=== PATIENT | male | born 1975 | race Caucasian/White ===

== ENCOUNTER 2020-09-16 07:15 | Outpatient (CLI) | payer OTHER, SELFPAY ==
--- NOTE | 2020-09-16 07:15 | ECG_ITS ---
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 Interpretive Statements NAME OF STUDY: LEXISCAN SESTAMIBI STRESS TEST INDICATION: Chest Pain, PROCEDURE: At the baseline, the EKG revealed normal sinus rhythm with a normal ST-T's. The baseline blood pressure was 156/81 mm Hg with a heart rate of 86 beats/min. Lexiscan was infused over a period of 20 seconds. A total of 0.4 milligrams of Lexiscan was infused. The stress phase was continued for a total of 5 minutes. Heart rate at the end of the stress phase was 105 with a blood pressure 178/83. The EKG at the peak infusion revealed no significant changes. Sestamibi was injected 20 seconds after the Lexiscan infusion. Blood pressure at the end of the recovery phase was 170/90 with a heart rate of 98 per minute. CONCLUSION: 1. No significant EKG changes with the LexiScan infusion 2. No LexiScan induced chest pain or cardiac arrhythmia 3. Normal blood pressure and heart rate response 4. Sestamibi/sestamibi perfusion scan pending; see separate report. Electronically Signed On 09-18-2020 8:52:32 CDT by Lona Haile M.D. [id number]
--- NOTE | 2020-09-16 07:15 | NMCV_ITS ---
NM celia perf SPECT r/s* [id number] Js Graves Age: 45 Gender: M : 1975 Exam Date: 09/16/2020 07:15 Ordering Phys: Jacqueline Cheema NP Technologist: LUCRECIA Patel Exam Location: [facility] Indications: CHEST PAIN STRESS TEST Please see separate stress test report in [facility] for full findings IMAGE PROTOCOL Rest/Stress 1 Radiopharmaceutical Dose (mCi) Administration Site Administered by Rest: Tc-99m 10.8 IV LUCRECIA Srinivasan Sestamibi Stress:Tc-99m 32.8 IV LUCRECIA Patel Sestamitracie Rest: 16-Sep-2020 60 Discovery 630 Stress: 16-Sep-2020 30 Discovery 630 SPECT RESULTS Technical Quality: Excellent Raw Data Analysis: Normal Image Corrections: No attenuation or motion correction applied Summed Stress Score: 0 Summed Rest Score: 0 Summed Difference Score: 0 PERFUSION FINDINGS Small areas of decreased tracer uptake in the apical segment with no significant reversibility. FUNCTIONAL RESULTS (calculated via Gated SPECT) Stress Image LV EF (%): 58 Stress EDV (mL):124 TID: 1.07 Stress ESV (mL):52 FUNCTIONAL FINDINGS: Segmental wall motion analysis revealing no gross wall motion abnormalities IMPRESSIONS 1. Myocardial perfusion imaging revealing small areas of persistent decreases uptake in the apical regions, suggestive of myocardial scarring versus attenuation artifact. 2. Normal LV ejection fraction 58%. 3. LV wall motion analysis revealing no gross wall motion normalities. 4. Mildly dilated LV cavity Low probability for coronary ischemia, based on the above findings Dr Lona Haile MD FACC (Electronically Signed) Final Date: 16 September 2020 19:49 S
[2020-09-16 07:30] VITALS: BMI 36.3
[2020-09-16] MEDS: regadenoson 0.4 Mg/5 ml Syringe IVP (09:00)
[2020-09-16 09:19] VITALS: BP 175/84; PULSE 102
== END 2020-09-16 07:16 | disposition home or self-care (01) ==
LOC: CDL 07:17
PROVIDERS: PCP Nurse Practitioner Family; Visit Provider Nurse Practitioner Family
DX: R07.89 Other chest pain (principal)
CPT/HCPCS: 78452; 93017; A9500; J2785

== ENCOUNTER → 2021-01-01 08:06 | Outpatient (BNVA) | payer OTHER, SELFPAY | PROVIDERS: PCP Nurse Practitioner Family; Referring Provider Nurse Practitioner Family; Visit Provider Internal Medicine | DX: E11.9 Type 2 diabetes mellitus without complications (principal); Z79.4 Long term (current) use of insulin; E66.01 Morbid (severe) obesity due to excess calories; Z68.35 Body mass index [BMI] 35.0-35.9, adult; E78.5 Hyperlipidemia, unspecified; F17.200 Nicotine dependence, unspecified, uncomplicated; I10 Essential (primary) hypertension | CPT/HCPCS: 99205 ==

== ENCOUNTER 2021-01-01 09:18 | Outpatient (CLI) | payer OTHER, SELFPAY ==
[2021-01-01 10:16] LABS: Glucose 148 mg/dL (65-115)
[2021-01-02 09:58] LABS: C-Peptide 4.33 ng/mL (0.80-3.85)
== END 2021-01-01 09:19 | disposition home or self-care (01) ==
LOC: LAB 09:24
PROVIDERS: PCP Nurse Practitioner Family; Visit Provider Internal Medicine
DX: E11.9 Type 2 diabetes mellitus without complications (principal)
CPT/HCPCS: 36415; 82947; 83519; 83525; 84681; 86337

== ENCOUNTER 2021-05-01 14:13 | Inpatient (IN) | payer OTHER, SELFPAY ==
[2021-05-01] VITALS (13 sets, daily range): BP systolic 138–166; BP diastolic 69–105; PULSE 61–101; RESP 16–25; TEMP 36.5–36.8; O2SAT 95–97; BMI 36.6
--- NOTE | 2021-05-01 14:16 | XR_ITS ---
WS: [id number] Portable AP upright chest, 05/01/2021 Clinical Data: chest pain Comparison: None. Findings: No nodules, masses or effusions are seen. The heart is normal. No pneumonia or pneumothorax is seen. The pulmonary vascularity is not increased. The diaphragms are flattened. XR/XR chest 1V portable 17094 Impression: Hyperinflation.
--- NOTE | 2021-05-01 14:16 | ECG_ITS ---
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
--- NOTE | 2021-05-01 14:18 | W.ED.CHESTPA ---
HPI - Chest Pain General: Chief Complaint: Chest Pain Stated Complaint: CHEST PAIN Time Seen by Provider: 05/01/21 14:15 History of Present Illness: HPI narrative: 45-year-old male presents emergency room with episodes of chest pain. He has had several episodes this week that have increased in intensity and duration. The most recent one was the most severe it occurred while he was at rest driving in his car. He went to a local clinic they gave him sublingual nitro and 2 more aspirin he taken 2 aspirin earlier in the day. After he was given the sublingual nitro he had significant relief of pain EMS was called and he was brought into the ER. He had pain radiating into his jaw but not into his arm he has had a little bit of diaphoresis with these episodes this week he does not really need noticed any shortness of breath. Has not previously had an angiogram or stenting done. PT had a normal sestamibi stress test 09/17 MD complaint: chest pain Onset (ago): day(s) Timing of current episode: episodic Onset: during rest Pain location: left chest Pain radiation: jaw/teeth Severity: moderate Quality: tightness and heaviness Relieving factors: nitroglycerin Exacerbating factors: nothing Associated symptoms: Deny abdominal pain, diaphoresis, dyspnea, fever(s), leg edema, nausea, palpitations, sense of impending doom, syncope or vomiting Treatment prior to arrival: aspirin and nitroglycerin Review of Systems Const: Denies: fever(s) or diaphoresis ENMT: Denies: throat pain, ear or mastoid pain, nasal discharge or nasal congestion Card: Denies: palpitations or syncope Resp: Denies: dyspnea GI: Denies: abdominal pain, nausea or vomiting : Denies: flank pain, dysuria, urinary frequency or urinary urgency Skin/Breast: Denies: rash or pruritus PFSH ED PFSH: Medical History Diabetes Dyslipidemia HTN (hypertension) Obesity Surgical History No history of previous surgery Family History Father Diabetes CAD (coronary artery disease) Social History Smoking and tobacco status: current every day smoker cigarettes Packs smoked per day: 1 Alcohol intake: current Physical Exam Const: COMMON NORMALS: no acute distress GENERAL APPEARANCE: cooperative and comfortable ORIENTATION/CONSCIOUSNESS: Yes awake, Yes oriented to person, Yes oriented to place and Yes oriented to time HENMT: COMMON NORMALS: normocephalic, atraumatic, hearing grossly normal bilaterally and external ears normal HEAD & SCALP: normocephalic and atraumatic EXTERNAL EAR: Yes external ears normal Neck/C-Spine: COMMON NORMALS: no JVD Resp: COMMON NORMALS: normal respiratory effort, No retractions, No use of accessory muscles and clear to auscultation bilaterally AUSCULTATION: clear to auscultation bilaterally Cardio: COMMON NORMALS: no JVD, regular rate, regular rhythm and No murmurs present (Cardio) RATE: regular rate RHYTHM: regular rhythm GI: COMMON NORMALS: Soft to palpation and No hepatosplenomegaly present AUSCULTATION: Yes normoactive bowel sounds PALPATION: Yes Soft to palpation, No Tenderness to palpation present (GI), No Guarding due to palpation present (GI) and Yes No hepatosplenomegaly present Extremity: COMMON NORMALS: normal to inspection, capillary refill normal, no clubbing, cyanosis or edema, no calf tenderness and no pedal edema Neuro: SENSORIUM/ORIENTATION: Yes oriented to person, Yes oriented to place and Yes oriented to time Skin: COMMON NORMALS: no rashes or lesions noted GENERAL SKIN EXAM: no rashes or lesions noted Course Vital Signs: Vital signs: Vital Signs Temperature 98.2 F 05/01/21 14:14 Pulse Rate 81 05/01/21 14:14 Respiratory Rate 16 05/01/21 14:14 Blood Pressure 166/101 05/01/21 14:14 Pulse Oximetry 97 05/01/21 14:42 MDM - Chest Pain MDM Narrative: Medical decision making narrative: Patient's chest pain is completely relieved. He has significant cardiac risk factors with smoking obesity hypertension and diabetes. He did have a stress test in August 2020 however he is persisting to have symptoms relieved by nitro. Given his very high risk factor profile the escalating unstable angina this week relieved by nitro I feel it is best he be admitted to the hospital and reevaluated. He is in agreement. Lab Data: Labs: Lab Results 05/01/21 05/01/21 05/01/21 Range/Units 13:30 13:30 13:30 WBC 8.8 (4.0-10.0) 10^3/ uL RBC 5.42 H (4.1-5.3) 10^6/u L Hgb 16.3 (11.7-16.6) g/dL Hct 48.4 (42.0-52.0) % MCV 89.3 (80-94) fL MCH 30.1 (28.0-34.0) pg MCHC 33.7 (30.0-36.0) g/dL RDW 13.9 (12.1-15.1) % Plt Count 217 (130-400) 10^3/c mm MPV 10.4 (7.4-10.4) fL Neut % (Auto) 59.6 % Lymph % (Auto) 26.8 % [place] % (Auto) 9.8 % Eos % (Auto) 2.7 % Baso % (Auto) 0.6 % Neut # (Auto) 5.27 (1.8-7.7) 10^3/u L Lymph # (Auto) 2.4 (0.8-4.8) 10^3/u L [place] # (Auto) 0.9 (0.2-0.9) 10^3/u L Eos # (Auto) 0.2 (0.0-0.8) 10^3/u L Baso # (Auto) 0.1 (0.0-0.1) 10^3/u L Nucleated RBC % (a uto) 0 % Nucleated RBCs # 0.0 /100WBC Sodium 140 (136-145) mmol/L Potassium 4.1 (3.5-5.1) mmol/L Chloride 106 (98-107) mmol/L Carbon Dioxide 21 L (22-29) mmol/L Anion Gap 17.1 (5-19) BUN 17 (6-20) mg/dL Creatinine 0.8 (0.7-1.2) mg/dL GFR Calculation 103.6 (90-130) mL/min Glucose 120 H (65-115) mg/dL Calculated Osmolal ity 293 (285-295) mOsm/k g Calcium 9.5 (8.5-10.5) mg/dL Total Bilirubin 0.4 (0.15-1.2) mg/dL AST 22 (0-40) U/L ALT 32 (0-41) U/L Alkaline Phosphata se 108 (40-130) IU/L Troponin T Baselin e 48 H (0-15) ng/L Total Protein 6.5 L (6.6-8.7) g/dL Albumin 4.4 (3.5-5.2) g/dL Globulin 2.1 (1.3-4.6) g/dL Discharge Plan Discharge Patient Disposition: Admitted As Inpatient Clinical Impression: Unstable angina pectoris, Diabetes, Obesity, Smoker, Benign essential HTN Condition: Stable Coding Level of Care Code ED Deck Mechanic for Rita Fwd Exam Comprehensive
[2021-05-01 14:38] LABS: Basophils # 0.1 10^3/uL (0.0-0.1); Basophils % 0.6 %; Eosinophils # 0.2 10^3/uL (0.0-0.8); Eosinophils % 2.7 %; Hematocrit 48.4 % (42.0-52.0); Hemoglobin 16.3 g/dL (11.7-16.6); Lymphocytes # 2.4 10^3/uL (0.8-4.8); Lymphocytes % 26.8 %; Mean Corpuscular HGB Conc 33.7 g/dL (30.0-36.0); Mean Corpuscular Hemoglobin 30.1 pg (28.0-34.0); Mean Corpuscular Volume 89.3 fL (80-94); Mean Platelet Volume 10.4 fL (7.4-10.4); Monocytes # 0.9 10^3/uL (0.2-0.9); Monocytes % 9.8 %; Neutrophils # 5.27 10^3/uL (1.8-7.7); Neutrophils % 59.6 %; Nucleated Red Blood Cells % 0 %; Platelet Count 217 10^3/cmm (130-400); Red Blood Count 5.42 10^6/uL (4.1-5.3); Red Cell Distribution Width 13.9 % (12.1-15.1); White Blood Count 8.8 10^3/uL (4.0-10.0)
[2021-05-01 14:52] LABS: Alanine Aminotransferase 32 U/L (0-41); Albumin Level 4.4 g/dL (3.5-5.2); Alkaline Phosphatase 108 IU/L (40-130); Anion Gap 17.1 (5-19); Aspartate Amino Transferase 22 U/L (0-40); Blood Urea Nitrogen 17 mg/dL (6-20); Calcium 9.5 mg/dL (8.5-10.5); Carbon Dioxide 21 mmol/L (22-29); Chloride 106 mmol/L (98-107); Globulin 2.1 g/dL (1.3-4.6); Glomerular Filtration Rate 103.6 mL/min (90-130); Glucose 120 mg/dL (65-115); Osmolality Calculated 293 mOsm/kg (285-295); Potassium 4.1 mmol/L (3.5-5.1); Sodium 140 mmol/L (136-145); Total Bilirubin 0.4 mg/dL (0.15-1.2); Total Protein 6.5 g/dL (6.6-8.7)
[2021-05-01 14:54] LABS: Troponin(5th) Baseline 48 ng/L (0-15)
--- NOTE | 2021-05-01 16:16 | ECG_ITS ---
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
--- NOTE | 2021-05-01 17:35 | P.HP_ITS ---
Providers/Chief Complaint Admitting Physician: Meaghan Hilario Primary Care Provider: Jacqueline Cheema NP Chief Complaint: CHEST PAIN History of Present Illness 45 year old with past medical history of tobacco abuse, chronic obstructive lung disease, obstructive sleep apnea, hypertension, hyperlipidemia, insulin- dependent diabetes mellitus who presented to ER with substernal chest pain. Patient noted intermittent chest pain for past two days. Today episode lasted for over 30 mins. Denied any associated dyspnea or diaphoresis. Call EMR during which time he was given SL NGT. Noted improvement in pain afterwards however not completely resolved. Upon arrival to ER EKG did not evidence of acute ischemia. Laboratory workup on arrival showed a WBC of 8.8, hemoglobin of 16.3, hematocrit 48.4 and a platelet count of 217. Sodium 140, potassium 4.1, chloride 106, bicarb 21, BUN 17 and creatinine is 0.8, glucose of 120, AST of 22, ALT of 32, ALP of 108. Troponin-T baseline 48, 61 at 120 min - Delta fo 13. In ER nitro- paste was applied. Also given lovenox 1mg/kg and cardiology consult. He was awake, alert, not in any visible distres. Prior Nuclear stress test in 08/2020 which did not show any evidence of reversible ischemia. Review of Systems General: Reports: 10 or more systems reviewed and unremarkable except in HPI and below Const: Denies: fever(s) or diaphoresis ENMT: Denies: throat pain, ear or mastoid pain, nasal discharge or nasal congestion Card: Denies: palpitations or syncope Resp: Denies: dyspnea GI: Denies: abdominal pain, nausea or vomiting : Denies: flank pain, dysuria, urinary frequency or urinary urgency Skin/Breast: Denies: rash or pruritus Medications/Allergies Home Medications Medication Instructions Recorded Confirmed Last Taken Type insulin lispro 100 unit/mL 5 unit SUBCUT TID #15 ml 01/01/21 05/01/21 05/01/21 09:30 Rx subcutaneous pen 5 units irbesartan 150 mg tablet 150 mg PO BEDTIME 01/01/21 05/01/21 04/30/21 History pen needle, diabetic 31 gauge x #360 ea 01/16/21 05/01/21 Unknown Rx 02/10 Vitamin C 1 tab PO BEDTIME 05/01/21 05/01/21 04/30/21 History aspirin 650 mg PO PRN 05/01/21 05/01/21 05/01/21 09:30 History 650 mg atorvastatin 20 mg PO BEDTIME 05/01/21 05/01/21 04/30/21 History calcium carb-D3-mag ox-zinc ox 1 tab PO BEDTIME 05/01/21 05/01/21 04/30/21 History [Roshan Mag Zinc Plus D3] cholecalciferol (vitamin D3) 25 mcg PO BEDTIME 05/01/21 05/01/21 04/30/21 History [Vitamin D3] insulin glargine [Lantus Solostar 48 unit SUBCUT BEDTIME 05/01/21 05/01/21 04/30/21 History U-100 Insulin] multivit with min-folic acid 1 tab PO BEDTIME 05/01/21 05/01/21 04/30/21 History [Adult Multivitamin Gummies] varenicline [Chantix Continuing 1 mg PO BID 05/01/21 05/01/21 05/01/21 09:30 History Month Box] Allergies Allergy/AdvReac Type Severity Reaction Status Date / Time No Known Allergies Allergy Verified 05/01/21 15:11 PFSH Acute 2 PFSH: Medical History Diabetes Dyslipidemia HTN (hypertension) Obesity Surgical History No history of previous surgery Family History Father Diabetes CAD (coronary artery disease) Social History Smoking and tobacco status: current every day smoker cigarettes Packs smoked per day: 1 Alcohol intake: current Vitals/I&O/Wt Last Vital Signs Temp 98.2 F 05/01/21 14:14 Pulse 62 05/01/21 17:06 Resp 25 H 05/01/21 17:06 BP 138/89 05/01/21 17:06 Pulse Ox 96 05/01/21 17:06 Weight last 48 hrs Weight 122.47 kg Physical Exam Narrative: EXAM NARRATIVE: General : Alert, awake, oriented x 3 HEENT: Grossly unremarkable CVS: Regular rate rythym Chest : CTABL ABD: Soft NTND Ext : no edema Data : 05/01/21 13:30 05/01/21 13:30 A&P Assessment and plan (1) NSTEMI (non-ST elevated myocardial infarction): Status: Acute (2) Benign essential HTN: Status: Acute (3) Diabetes: Status: Acute (4) Obesity: Status: Acute (5) Smoker: Status: Acute Non-STEMI Troponin T delta of 13 Aspirin 325 mg PO daily Lipitor 80 mg PO qhs ( High intensity ) Lovenox 120 mg SQ BID NGT SL PRN for chest pain Start Nitro gtt if persistent pain Cardiac telemetry Cardiology consulted in ER Check Lipid panel/A1c in am NPO at midnight Diabetes Mellitus Start diabetic diet Sliding scale insulin Lantus 50% dose at 20 units Qhs ACHS checks Hypertension Verify home meds Hyperlipidemia Lipid panel in am Statin as noted above Goal LDL < 70 Suspected undiagnosed COPD Hyperinflation noted on Chest x-ray Supplemental o2 as needed Outpatient PFT Albuterol PRN DVT ppx Lovenox Attestations Medical Necessity Statement*: Anticipate > 2 midnight stay in hospital for eval and treatment of NSTEMI Time Spent in Patient Care: Greater than 35 minutes (>than 50% of time spent in counselling and/or direct pt care on unit) . 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
[2021-05-01] MEDS: enoxaparin 120 mg/0.8 mL Syringe SUBCUT (17:37)
--- NOTE | 2021-05-01 17:50 | P.CONIM_ITS ---
Providers/Reason For Consult Consulting Physician/Specialty*: Cardiology Reason for Consult*: Non-ST elevation GA Attending Physician: Meaghan Hilario Primary Care Provider: Jacqueline Cheema NP History of Present Illness History of Present Illness Js Graves is a 45 year old male past medical history significant for hypertension hyperlipidemia insulin-dependent diabetes mellitus tobacco abuse presented with chest pain. Twelve-lead EKG was not significant to show ischemia however he was ruled in for non-ST elevation GA. It is the reason we have been asked to see the patient. According to the patient for the last 2 days he has been experiencing off-and-on chest pain today when it became more consistent and increased in intensity while driving the car he stop by the [facility] from where he was transported to the ER. He appeared to be stable he was given Lovenox and nitroglycerin along with aspirin and statin. Review of Systems Const: Denies: fever(s) or diaphoresis ENMT: Denies: throat pain, ear or mastoid pain, nasal discharge or nasal congestion Card: Denies: palpitations or syncope Resp: Denies: dyspnea GI: Denies: abdominal pain, nausea or vomiting : Denies: flank pain, dysuria, urinary frequency or urinary urgency Skin/Breast: Denies: rash or pruritus Meds/Allergies Home Medications and Allergies Home Medications Medication Instructions Recorded Confirmed Last Taken Type insulin lispro 100 unit/mL 5 unit SUBCUT TID #15 ml 01/01/21 05/01/21 05/01/21 09:30 Rx subcutaneous pen 5 units irbesartan 150 mg tablet 150 mg PO BEDTIME 01/01/21 05/01/21 04/30/21 History pen needle, diabetic 31 gauge x #360 ea 01/16/21 05/01/21 Unknown Rx /16 Vitamin C 1 tab PO BEDTIME 05/01/21 05/01/21 04/30/21 History aspirin 650 mg PO PRN 05/01/21 05/01/21 05/01/21 09:30 History 650 mg atorvastatin 20 mg PO BEDTIME 05/01/21 05/01/21 04/30/21 History calcium carb-D3-mag ox-zinc ox 1 tab PO BEDTIME 05/01/21 05/01/21 04/30/21 History [Roshan Mag Zinc Plus D3] cholecalciferol (vitamin D3) 25 mcg PO BEDTIME 05/01/21 05/01/21 04/30/21 History [Vitamin D3] insulin glargine [Lantus Solostar 48 unit SUBCUT BEDTIME 05/01/21 05/01/21 04/30/21 History U-100 Insulin] multivit with min-folic acid 1 tab PO BEDTIME 05/01/21 05/01/21 04/30/21 History [Adult Multivitamin Gummies] varenicline [Chantix Continuing 1 mg PO BID 05/01/21 05/01/21 05/01/21 09:30 History Month Box] Allergies Allergy/AdvReac Type Severity Reaction Status Date / Time No Known Allergies Allergy Verified 05/01/21 15:11 PFSH Acute PFSH: Medical History Diabetes Dyslipidemia HTN (hypertension) Obesity Surgical History No history of previous surgery Family History Father Diabetes CAD (coronary artery disease) Social History Smoking and tobacco status: current every day smoker cigarettes Packs smoked per day: 1 Alcohol intake: current Dietary Habits: Current diet type/program: diabetic Caffeine: Yes Vitals/I&O/Wt Last Vital Signs Temp 98.2 F 05/01/21 14:14 Pulse 62 05/01/21 17:06 Resp 25 H 05/01/21 17:06 BP 138/89 05/01/21 17:06 Pulse Ox 96 05/01/21 17:06 Weight last 48 hrs Weight 270 lb Physical Exam Narrative: EXAM NARRATIVE: GENERAL: Patient is alert, awake and oriented x3. NECK: No jugular vein distension. HEENT: No cyanosis. No icterus. No pallor. HEART: Regular S1 and S2. No murmur, rub or gallop. LUNGS: Clear to auscultate bilaterally. ABDOMEN: Soft, nontender and nondistended. Positive bowel sounds. No guarding, rebound or tenderness. CENTRAL NERVOUS SYSTEM: Grossly nonfocal. EXTREMITIES: Lower extremities without edema bilaterally. A&P Assessment and plan (1) NSTEMI (non-ST elevated myocardial infarction): Patient is ruled in for non-ST elevation GA. I will add beta-mariaelena and load him with ticagrelor, I will continue aspirin and statin. Planning to proceed with left heart cath and PCI if indicated in the morning. Patient has been explained all risk benefit and alternative for the procedure by myself. He has been explained the risk for urgent emergent bypass major minor bleed requiring transfusion arrhythmia stroke contrast-induced nephropathy . He would like to proceed with it. Status: Acute (2) Benign essential HTN: We will add beta-mariaelena to the regimen. He required will use IV nitroglycerin. Status: Acute (3) Smoker: Advised quitting smoking he is already working on it he is on Chantix Status: Acute (4) Diabetes: Insulin as per medicine Status: Acute Qualifiers: Diabetes mellitus type: type 1 Diabetes mellitus complication status: with other specified complication Qualified Code(s): E10.69 - Type 1 diabetes mellitus with other specified complication Consult Attestations Medical Necessity Statement: Patient require continuation hospitalization. I am expecting his stay to cross more than 2 midnights with Coding Level of Care Code New Pt Acute Career Law Clerk for [facility] Fwd Patient Type New History Detailed Exam Detailed Medical Decision Making Moderate Complexity Diagnoses NSTEMI (non-ST elevated myocardial infarction) I21.4 Benign essential HTN I10 Smoker F17.200 Diabetes E10.69 Diabetes mellitus type: type 1 Diabetes mellitus complication status: with other specified complication
[2021-05-01] MEDS: morphine 4 mg/mL SDV 1 mL 2 MG IVP (19:42)
[2021-05-01 19:57] LABS: Glucose Point of Care 90 mg/dL (70-110)
[2021-05-01 20:36] LABS: Troponin 5 6HR 246.5 ng/L (0-15); Troponin 5 6HR Delta 198.5 ng/L (0-12)
[2021-05-01] MEDS: famotidine 20 mg Tablet PO (21:36)
[2021-05-01] MEDS: atorvastatin 40 mg Tablet 80 MG PO (21:37)
[2021-05-01] MEDS: insulin glargine 100 units/1 mL 20 UNIT SUBCUT (21:44)
[2021-05-01] MEDS: ticagrelor 90 mg Tablet 180 MG PO (21:46)
[2021-05-01] MEDS: nicotine 14 mg Patch 1 PATCH TRANSDERMA (22:24)
[2021-05-01] MEDS: nitroglycerin drip 50 MG/250 ML PREMIX IV (22:31)
[2021-05-01 22:51] LABS: Glucose Point of Care 214 mg/dL (70-110)
--- NOTE | 2021-05-01 23:10 | PC.NURSE ---
Around 0: Patient scheduled to have angiogram in morning. Received orders from Dr. Moreno, see JAN. Around 2300: Patient requesting nicotine patch and CPAP at night. Notifed Dr. Hilario. Orders received see JAN.
[2021-05-01] MEDS: HYDROcodone-acetaminophen 5-325 mg Tablet 1 TAB PO (23:48)
[2021-05-02] VITALS (57 sets, daily range): BP systolic 117–178; BP diastolic 64–125; PULSE 62–99; RESP 16; O2SAT 92–99
[2021-05-02] MEDS: diphenhydrAMINE 50 mg Capsule PO (05:54)
[2021-05-02] MEDS: sodium chloride 0.9% 1,000 ML 50 ML IV (05:54)
--- NOTE | 2021-05-02 06:07 | XACV_ITS ---
Exam Room: [facility] Ht: 183 cm Wt: 123 kg BSA: 2.54 m2 Gender: Male : 1975 Exam Priority: Routine Procedure(s): Procedure Description: Diagnostic procedure Procedure Description: Left Heart Catheterization Diagnostic Cath Status: Elective Diagnostic Findings * Left Main has no disease. * Left Anterior Descending has no disease. * Circumflex has no disease. * Mid Right Coronary Artery: moderate 50% stenosis, AJAY: 3 flow. * First Obtuse Marginal Branch Segment: total occlusion, AJAY: 0 flow. * First Obtuse Marginal Branch Segment: obstructive 70% stenosis, AJAY: 0 flow. * Coronary angiography shows right dominance. Interventional Findings * First Obtuse Marginal Branch Segment: 100% stenosis treated with a AB MINI TREK 2.00X12 RX BALLOON, and MDT R DEAN 2.75X15 AALIYAH. 0% residual stenosis, AJAY: 3 flow. * First Obtuse Marginal Branch Segment: 70% stenosis treated with a Drug Eluting Stent. 0% residual stenosis, AJAY: 3 flow. Conclusions 1. There is moderate coronary artery disease with one vessel disease. 2. First Obtuse Marginal Branch Segment was treated with a Balloon, and Drug Eluting Stent. 3. First Obtuse Marginal Branch Segment was treated with a Drug Eluting Stent. Recommendations * Continue current medical management and risk factor modification. Clinical Evaluation EBL: 5mL-10mL Procedural Details Procedure Consent Obtained. Admit Source: In Patient. Pre-Procedure Time Out. Identified patient by full name and date of as verbalized by the patient/guarantor. Does the consent match the physician's order: Yes. Accurate & Complete Informed Consent: Yes. Inpatient/Outpatient History & Physical on Chart: Yes. If H&P is completed, is and addenduem needed: Yes; If yes, is the addendum complete: N/A. Visualize and Verify Site with Patient/Guarantor: N/A. Relevant Radiology Images available: N/A. Pre-op teaching completed and patient verbalized understanding. The risks, benefits, and alternatives of sedation and/or procedure were discussed by physician. The patient agrees to continue. Procedure started. Correct patient, site and procedure confirmed by cath team. PERRLA. Strong, equal hand shop fitter bilaterally. Lungs clear x 5 lobes. IV Site on Arrival: 18 gauge in the left hand. Oxygen started at 2liters/min via nasal canula. bilateral groins was prepped with chloroprep then draped in the usual sterile fashion. right radial was prepped with chloroprep then draped in the usual sterile fashion. Physician notified. Baseline sample Acquired. HR: 82 BPM. Physician arrived. Physician scrubbed in. Immediate Pre-Procedure Time Out. Correct Patient: Yes; Correct Procedure: Yes; Correct Site: Yes; Correct Patient Position: Yes; Correct Supplies: Yes; Dried Flammable Prep: Yes; Blood Products Available: N/A;. Lidocaine 1% infiltrated to the right radial. Arterial access obtained. A 5 amharic TIG catheter in over wire. Multiple views taken of left coronary artery. Catheter redirected to the RCA. long glidewire inserted to take out 5F TIG. Multiple views taken of right coronary artery. Catheter out. 6 amharic XB 3.5 guide catheter was inserted over the wire. Runthrough guidewire was advanced through the guide catheter to lesion in the OM. Inflation number : 1 A AB MINI TREK 2.00X12 RX BALLOON was prepped and advanced across the 1st Ob Maddison , then inflated to 12 SASHA for 0:13 seconds. Inflation number: 2 The AB MINI TREK 2.00X12 RX BALLOON was reinflated across the 1st Ob Maddison, to 14 SASHA for 0:10 seconds. Inflation number: 3 The AB MINI TREK 2.00X12 RX BALLOON was reinflated across the Ob Maddison, to 14 SASHA for 0:12 seconds. Inflation number: 4 The AB MINI TREK 2.00X12 RX BALLOON was reinflated across the Ob Amddison, to 14 SASHA for 0:11 seconds. Balloon out. Inflation Number : 1 A KERRI De Jesus DEAN 2.75X12 AALIYAH -Lot Number# [id number] exp date: 11-18-2022 was prepped and advanced across the Ost1st Ob Marg1. The stent was deployed at 16 SASHA for 0:30 seconds. Stent balloon out over wire. ACT drawn. Results 240 seconds. Therapeutic limits - pre-heparin administration 90-150 seconds and monitoring heparin during a vascular procedure >250 seconds. Results checked. Inflation Number : 5 Chilo De Jesus DEAN 2.75X15 AALIYAH -Lot Number# [id number] exp date: 12-10-2022 was prepped and advanced across the MID Ob Maddison. The stent was deployed at 18 SASHA for 0:19 seconds. Inflation number: 6 The stent balloon was then re-inflated across the MID Ob Maddison to 18 SASHA for 0:08 seconds. stopped Nitro running at 25mcg. Stent balloon out over wire. wire pulled back into guide to check results. Results checked. Wire out. Guide catheter out. TR band placed. Hemostasis obtained. Post Procedure: Pulses reassessed and unchanged. PERRLA. Strong, equal hand shop fitter bilaterally. No VTE prophylaxis required. Medication's Wasted: Lidocaine 1% = 18 mL. Medication's Wasted: Other = versed 1 mg. Total IV fluids: 89.4 mL. Contrast type used: Omnipaque 300 mgI/mL, 500 mL bottle. Contrast Material : Omnipaque 212 ml. A TR Band was successful obtaining hemostatsis at the Right Radial artery insertion site. [facility] Clinical Fraility Score: 3: Managing Well. Nuclear Chemistry Technician Indications: ACS <= 24 hours. Chest Pain Symptom Assessment: Typical Angina Symptoms. Cardiovascular Instability: No. PCI Indication: occluded OM1 prox and Mid. Post-op diagnosis: 2 drug illuting stents prox and mid OM. Complications: none. Estimated blood loss: 5mL-10mL. Procedure completed. Patient transferred by wheelchair to 1st floor. Vital chart was stopped. Access Site Site: Right Radial artery Sheath Size: 6 Fr Hemostasis Method: TR Band Hemostasis Success: Successful Procedure Medications Start: 7:26 AM Stop: 7:26 AM Medication: Versed Amount: 1 mg Route: I.V. Start: 7:26 AM Stop: 7:26 AM Medication: Fentanyl Amount: 50 mcg Route: I.V. Start: 7:33 AM Stop: 7:33 AM Medication: Versed Amount: 1 mg Route: I.V. Start: 7:38 AM Stop: 7:38 AM Medication: Heparin Amount: 5000 units Route: I.V. Start: 7:42 AM Stop: 7:42 AM Medication: Fentanyl Amount: 50 mcg Route: I.V. Start: 7:49 AM Stop: 7:49 AM Medication: Heparin Amount: 5000 units Route: I.V. Start: 8:09 AM Stop: 8:09 AM Medication: Nitrogylcerin Amount: 200 mcg Route: I.C. Start: 8:11 AM Stop: 8:11 AM Medication: Versed Amount: 1 mg Route: I.V. Start: 8:13 AM Stop: 8:13 AM Medication: Heparin Amount: 1000 units Route: I.V. I, the attending physician, have reviewed and verified all procedure medications. Yes, all medications given per verbal order History/Risk Factors Hypertension: Yes Dyslipidemia: Yes Tobacco Use: Current/Recent(w/in 1 year) Report Signatures Finalized by Jerson Moreno MD on 05/02/2021 02:36 PM
[2021-05-02 06:49] LABS: Basophils # 0.1 10^3/uL (0.0-0.1); Basophils % 0.4 %; Eosinophils # 0.2 10^3/uL (0.0-0.8); Eosinophils % 1.9 %; Hematocrit 48.9 % (42.0-52.0); Hemoglobin 15.8 g/dL (11.7-16.6); Lymphocytes # 2.4 10^3/uL (0.8-4.8); Lymphocytes % 21.4 %; Mean Corpuscular HGB Conc 32.3 g/dL (30.0-36.0); Mean Corpuscular Volume 89.7 fL (80-94); Mean Platelet Volume 9.6 fL (7.4-10.4); Monocytes # 1.1 10^3/uL (0.2-0.9); Monocytes % 9.3 %; Neutrophils # 7.48 10^3/uL (1.8-7.7); Neutrophils % 66.4 %; Nucleated Red Blood Cells % 0 %; Platelet Count 198 10^3/cmm (130-400); Red Blood Count 5.45 10^6/uL (4.1-5.3); Red Cell Distribution Width 13.7 % (12.1-15.1); White Blood Count 11.3 10^3/uL (4.0-10.0)
[2021-05-02 07:10] LABS: Alanine Aminotransferase 37 U/L (0-41); Albumin Level 3.9 g/dL (3.5-5.2); Alkaline Phosphatase 97 IU/L (40-130); Anion Gap 15.1 (5-19); Aspartate Amino Transferase 102 U/L (0-40); Blood Urea Nitrogen 16 mg/dL (6-20); Calcium 9.3 mg/dL (8.5-10.5); Carbon Dioxide 22 mmol/L (22-29); Chloride 100 mmol/L (98-107); Cholesterol 124 mg/dL (0-200); Globulin 3.1 g/dL (1.3-4.6); Glomerular Filtration Rate 103.6 mL/min (90-130); Glucose 140 mg/dL (65-115); HDL Cholesterol 31 mg/dL (60-100); LDL Cholesterol Calculated 61 mg/dL (50-129); LDL HDL Ratio 1.97 RATIO (0.00-3.22); Osmolality Calculated 279 mOsm/kg (285-295); Potassium 4.1 mmol/L (3.5-5.1); Sodium 133 mmol/L (136-145); Total Bilirubin 0.5 mg/dL (0.15-1.2); Triglycerides 159 mg/dL (0-150)
--- NOTE | 2021-05-02 07:16 | P.PN_ITS ---
Subjective Subjective: Interval history: Patient is doing well this morning. No shortness of breath. No fevers or chills. He is awaiting angiogram this morning. Blood sugars have been staying well controlled. Vitals/I&O/Wt Last Vital Signs Temp 97.7 F 05/01/21 20:00 Pulse 71 05/02/21 06:30 Resp 18 05/01/21 20:00 BP 127/82 05/02/21 06:30 Pulse Ox 96 05/02/21 06:30 05/01/21 05/02/21 05/02/21 22:59 06:59 14:59 Intake Total 400 / 423.225 23.225 / 423.225 Output Total 375 / 875 500 / 875 Balance 25 / -451.775 -476.775 / -451.775 Weight last 48 hrs Weight 270 lb Physical Exam Narrative: EXAM NARRATIVE: General: No acute distress, Alert. Well nourished. Heart: Regular rate and rhythm. No murmurs, rubs or gallops. Normal capillary refill. Lungs: Clear to auscultation. No wheezes, rhonchi or rales. Abdomen: Positive bowel sounds. Non-tender, non-distended. No hepatosplenomegaly. No gaurding. Extremities: No clubbing, cyanosis, or edema. Negative Zoey's Data : 05/02/21 05:30 05/02/21 05:30 A&P Assessment and plan (1) NSTEMI (non-ST elevated myocardial infarction): Appreciate cardiology's consult Proceed with angiogram today. Further cardiac management dependent on results of this test. Status: Acute (2) Benign essential HTN: Stable Status: Acute (3) Smoker: Encouraged to quit smoking Status: Acute (4) Diabetes: .Blood sugars are stable at this time. We will continue to monitor. Status: Acute Qualifiers: Diabetes mellitus type: type 1 Diabetes mellitus complication status: with other specified complication Qualified Code(s): E10.69 - Type 1 diabetes mellitus with other specified complication Attestations Medical Necessity Statement*: 45-year-old gentleman with acute requiring further inpatient testing and monitoring. 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
--- NOTE | 2021-05-02 07:28 | W.PM.OPSUD ---
Surgery/Procedure H&P Update DATE OF PROCEDURE: May 02, 2021 DATE H&P PERFORMED: 05/01/21 H&P UPDATE INFORMATION: I have reviewed H&P completed within last 30 days, I have examined patient prior to procedure and No changes to prior documentation PREOP DIAGNOSIS: Non-ST elevation TN PLANNED PROCEDURE: Operation Date: 05/02/21 07:00 Proposed Procedures p Cardiac Catheterization(Left) - Jerson Moreno MD PATIENT REASSESSED PRIOR TO SEDATION, WITH NO CHANGE NOTED: Yes PHYSICAL EXAM: alert, oriented x 3, clear to auscultation bilaterally and regular rate & rhythm AIRWAY EVAL/ANESTHESIA PLAN: ASA II, Risks, benefits & alternatives of sedation and/or procedure discussed and Patient agrees to continue as planned
[2021-05-02 07:49] LABS: Estmated Average Glucose 146; Hemoglobin A1C 6.7 % (4.0-6.0)
--- NOTE | 2021-05-02 08:35 | PM.PN ---
Subjective Subjective: Interval history: Status post coronary angiogram noted to have occluded large size and caliber obtuse marginal 1 branch of the circumflex. It was treated with proximal and mid 2 drug-eluting stents. Excellent angiographic result was achieved. Vitals/I&O/Wt Last Vital Signs Temp 97.7 F 05/01/21 20:00 Pulse 71 05/02/21 06:30 Resp 18 05/01/21 20:00 BP 127/82 05/02/21 06:30 Pulse Ox 96 05/02/21 06:30 05/01/21 05/02/21 05/02/21 22:59 06:59 14:59 Intake Total 400 / 400 23.225 / 423.225 Output Total 375 / 375 500 / 875 Balance -476.775 / -451.775 Weight last 48 hrs Weight 270 lb Physical Exam Narrative: EXAM NARRATIVE: GENERAL: Patient is alert, awake and oriented x3. NECK: No jugular vein distension. HEENT: No cyanosis. No icterus. No pallor. HEART: Regular S1 and S2. No murmur, rub or gallop. LUNGS: Clear to auscultate bilaterally. ABDOMEN: Soft, nontender and nondistended. Positive bowel sounds. No guarding, rebound or tenderness. CENTRAL NERVOUS SYSTEM: Grossly nonfocal. EXTREMITIES: Lower extremities without edema bilaterally. Data : 05/02/21 05:30 05/02/21 05:30 A&P Assessment and plan (1) NSTEMI (non-ST elevated myocardial infarction): Status post 2 drug-eluting stent to proximal and mid LAD size and caliber obtuse marginal 1 branch which was 100% occluded, it was culprit. Excellent angiographic result was achieved continue aspirin statin add beta-mariaelena to the regimen. Patient will be on Brilinta 90 mg twice a day for at least 1 year. Status: Acute (2) Benign essential HTN: Titrate medicine. We will add beta-mariaelena which will also lower his blood pressure. Status: Acute (3) Smoker: Advised quitting smoking patient says he is definitely going to do that. Status: Acute Attestations Medical Necessity Statement*: Most likely discharge tomorrow he will be here overnight for post PCI care. Coding Level of Care Code Established Pt Acute Consumer Affairs Director for [facility] Patient Type Established History Detailed Exam Detailed Medical Decision Making Moderate Complexity Diagnoses NSTEMI (non-ST elevated myocardial infarction) I21.4 Benign essential HTN I10 Smoker F17.200
[2021-05-02 09:28] LABS: Glucose Point of Care 264 mg/dL (70-110)
[2021-05-02] MEDS: metoprolol succinate ER (24 HR) 25 mg Tablet 12.5 MG PO (10:18)
[2021-05-02] MEDS: nicotine 14 mg Patch 1 PATCH TRANSDERMA (10:19)
[2021-05-02 11:31] LABS: Glucose Point of Care 195 mg/dL (70-110)
--- NOTE | 2021-05-02 12:16 | USCV_ITS ---
Js Graves Age: 45 Gender: M : 1975 Exam Date: 05/02/2021 09:37 Ordering Phys: Jerson Moreno MD ([email or web address]) Technologist: Cristina Tam Exam Location[place] [facility] [place]ication: NSTEMI BP: 127 / 82 HR: 77 Rhythm: Sinus Technical Quality: Suboptimal MEASUREMENTS (Male / Female) Normal Values 2D ECHO LV Diastolic Diameter PLAX 4.0 cm 4.2 - 5.9 / 3.9 - 5.3 cm LV Systolic Diameter PLAX 3.2 cm LV Chamber Size 3.8 cm IVS Diastolic Thickness 1.3 cm 0.6 - 1.0 / 0.6 - 0.9 cm IVS Systolic Thickness 1.7 cm LVPW Diastolic Thickness 1.5 cm 0.6 - 1.0 / 0.6 - 0.9 cm LVPW Systolic Thickness 1.4 cm RV Chamber Size 2.9 cm LVOT Diameter 2.0 cm LV Ejection Fraction 2D Teich 42.1 % LV Ejection Fraction MOD 2C 49.8 % LV Ejection Fraction 2C AL 51.3 % LA Diameter 3.2 cm LA Width 2.3 cm LA Height 5.4 cm RA Width 2.8 cm RA Height 5.1 cm Aorta at Sinotubular Diameter 3.1 cm M-MODE LV Diastolic Diameter MM 5.0 cm 4.2 - 5.9 / 3.9 - 5.3 cm LV Systolic Diameter MM 3.3 cm LV Ejection Fraction MM Teich 63.2 % IVS Diastolic Thickness MM 1.4 cm 0.6 - 1.0 / 0.6 - 0.9 cm IVS Systolic Thickness MM 2.0 cm LVPW Diastolic Thickness MM 1.6 cm 0.6 - 1.0 / 0.6 - 0.9 cm LVPW Systolic Thickness MM 1.8 cm RV Diastolic Diameter MM 1.2 cm Aortic Annulus Diameter 3.6 cm LA Ao Ratio MM 1.0 MV E Point Septal Separation 0.6 cm DOPPLER AV Peak Velocity 88.0 cm/s LVOT Peak Velocity 47.0 cm/s AV Area Cont Eq vti 2.1 cm squared AV Area Cont Eq pk 1.7 cm squared MV Area PHT 5.1 cm squared Mitral E to A Ratio 1.2 MV E' Velocity 45.5 cm/s Mitral E to MV E' Ratio 7.9 Mitral E to LV E' Lateral Ratio 8.1 Mitral E to LV E' Septal Ratio 7.8 TV Peak E Velocity 60.0 cm/s Right Atrial Pressure 8.0 mmHg PV Peak Velocity 82.0 cm/s RV Acceleration Time 0.1 s RV Ejection Time 0.3 s RV AcT/ET 0.4 FINDINGS Left Ventricle Normal left ventricular cavity size. Normal left ventricular systolic function. No regional wall motion abnormalities. Left ventricular ejection fraction is estimated at 60 %. Grade II/IV diastolic dysfunction, moderately elevated filling pressures. Right Ventricle The right ventricle is normal in size and function. Right Atrium The right atrium is normal in size. Left Atrium The left atrium is normal in size. Mitral Valve Structurally normal mitral valve without significant stenosis or prolapse. There is no mitral regurgitation. Aortic Valve Structurally normal aortic valve without significant sclerosis or stenosis. There is no aortic regurgitation. Tricuspid Valve Structurally normal tricuspid valve without significant stenosis or regurgitation. Pulmonary artery systolic pressure is normal. Pulmonic Valve Structurally normal pulmonic valve without significant stenosis. There is no pulmonic regurgitation. Pericardium Normal pericardium without effusion. Aorta Normal ascending aorta dimension. CONCLUSIONS 1-Normal left ventricular cavity size. Normal left ventricular systolic function. No regional wall motion abnormalities. Left ventricular ejection fraction is estimated at 60 %. Grade II/IV diastolic dysfunction, moderately elevated filling pressures. 2-There is no pericardial effusion. 3-No significant valve abnormalities. 4-Pulmonary artery systolic pressure is within normal limits. 5-Right atrial pressure is around 5 mm of mercury. 6-There are no prior echocardiogram studies to compare. Jerson Moreno MD (Electronically Signed) Final Date: 02 May 2021 14:23 S
[2021-05-02] MEDS: losartan 50 mg Tablet PO ×2 (15:52→20:11)
[2021-05-02 16:45] LABS: Glucose Point of Care 126 mg/dL (70-110)
[2021-05-02] MEDS: famotidine 20 mg Tablet PO (17:18)
--- NOTE | 2021-05-02 17:43 | PC.NURSE ---
Patient received on floor at approx 0900 after coming back from clinical genetics laboratory chief for cardiac angiogram. TR band placed in clinical genetics laboratory chief, palpable pulse distal to band, hand warm to touch, no hematoma present. Patient given instructions on limitations related to affected wrist/hand.
--- NOTE | 2021-05-02 17:46 | PC.NURSE ---
TR band slowly deflated over next few hours following 0900. No hematoma present, no bleeding noted. TR band finally removed at approx 1700, dressing placed over site.
[2021-05-02 19:58] LABS: Glucose Point of Care 125 mg/dL (70-110)
[2021-05-02] MEDS: insulin glargine 100 units/1 mL 20 UNIT SUBCUT (20:10)
[2021-05-02] MEDS: ascorbic acid 500 mg Tablet PO (20:11)
[2021-05-02] MEDS: atorvastatin 40 mg Tablet 80 MG PO (20:11)
[2021-05-03] VITALS: BP 108/69; PULSE 74; RESP 16; TEMP 36.9; O2SAT 94
[2021-05-03 04:16] LABS: Basophils # 0.1 10^3/uL (0.0-0.1); Basophils % 0.6 %; Eosinophils # 0.2 10^3/uL (0.0-0.8); Eosinophils % 2.4 %; Hematocrit 51.3 % (42.0-52.0); Hemoglobin 16.1 g/dL (11.7-16.6); Lymphocytes # 2.7 10^3/uL (0.8-4.8); Lymphocytes % 29.7 %; Mean Corpuscular HGB Conc 31.4 g/dL (30.0-36.0); Mean Corpuscular Hemoglobin 29.7 pg (28.0-34.0); Mean Corpuscular Volume 94.5 fL (80-94); Mean Platelet Volume 9.4 fL (7.4-10.4); Monocytes % 11.3 %; Neutrophils # 5.03 10^3/uL (1.8-7.7); Neutrophils % 55.7 %; Nucleated Red Blood Cells % 0 %; Platelet Count 170 10^3/cmm (130-400); Red Blood Count 5.43 10^6/uL (4.1-5.3)
[2021-05-03 04:36] LABS: Blood Urea Nitrogen 12 mg/dL (6-20); Carbon Dioxide 19 mmol/L (22-29); Chloride 104 mmol/L (98-107); Glomerular Filtration Rate 120.9 mL/min (90-130); Glucose 105 mg/dL (65-115); Osmolality Calculated 282 mOsm/kg (285-295); Sodium 136 mmol/L (136-145)
[2021-05-03 04:44] LABS: Anion Gap 17.2 (5-19); Potassium 4.2 mmol/L (3.5-5.1)
[2021-05-03 06:00] VITALS: PULSE 74
[2021-05-03 06:32] LABS: Glucose Point of Care 109 mg/dL (70-110)
[2021-05-03 07:15] VITALS: BP 131/79; PULSE 97; RESP 18; TEMP 36.7; O2SAT 92
--- NOTE | 2021-05-03 07:39 | P.PN_ITS ---
Subjective Subjective: Interval history: Patient seems to be doing well. He has no chest pain or shortness of breath. No fevers or chills. He tolerated the angiogram well. Medications: Reviewed: Yes Vitals/I&O/Wt Last Vital Signs Temp 98.0 F 05/03/21 07:15 Pulse 97 05/03/21 07:15 Resp 18 05/03/21 07:15 BP 131/79 05/03/21 07:15 Pulse Ox 92 05/03/21 07:15 05/02/21 05/03/21 05/03/21 22:59 06:59 14:59 Intake Total 313.875 / 1053.042 100 / 1053.042 Output Total 200 / 1150 950 / 1150 Balance 113.875 / -96.958 -850 / -96.958 Weight last 48 hrs Weight 270 lb Physical Exam Narrative: EXAM NARRATIVE: General: No acute distress, Alert. Well nourished. Heart: Regular rate and rhythm. No murmurs, rubs or gallops. Normal capillary refill. Lungs: Clear to auscultation. No wheezes, rhonchi or rales. Abdomen: Positive bowel sounds. Non-tender, non-distended. No hepatosplenomegaly. No gaurding. Extremities: No clubbing, cyanosis, or edema. Negative Zoey's Data : 05/03/21 04:05 05/03/21 04:05 A&P Assessment and plan (1) NSTEMI (non-ST elevated myocardial infarction): Appreciate cardiology's consult Status post angiogram with 2 stents placed. Seems to be doing well. Probably discharge today after cardiology sees him. Status: Acute (2) Benign essential HTN: Stable Status: Acute (3) Smoker: Encouraged to quit smoking Status: Acute (4) Diabetes: .Blood sugars are stable at this time. We will continue to monitor. Status: Acute Qualifiers: Diabetes mellitus type: type 1 Diabetes mellitus complication status: with other specified complication Qualified Code(s): E10.69 - Type 1 diabetes mellitus with other specified complication Attestations Medical Necessity Statement*: Should be good for discharge today. Coding Level of Care Code Acute Prenatal Nurse for [facility] Diagnoses NSTEMI (non-ST elevated myocardial infarction) I21.4 Benign essential HTN I10 Smoker F17.200 Diabetes E10.69 Diabetes mellitus type: type 1 Diabetes mellitus complication status: with other specified complication
[2021-05-03] MEDS: famotidine 20 mg Tablet PO (08:21)
[2021-05-03] MEDS: metoprolol succinate ER (24 HR) 25 mg Tablet 12.5 MG PO (08:21)
[2021-05-03] MEDS: aspirin 325 mg Tablet PO (08:21)
[2021-05-03] MEDS: nicotine 14 mg Patch 1 PATCH TRANSDERMA (08:23)
--- NOTE | 2021-05-03 09:23 | PM.PN ---
Subjective Subjective: Interval history: Patient is doing well. no complaints of chest pain, shortness of breath or palpitations.Right radial artery access site is normal Vitals/I&O/Wt Last Vital Signs Temp 98.0 F 05/03/21 07:15 Pulse 97 05/03/21 07:15 Resp 18 05/03/21 07:15 BP 131/79 05/03/21 07:15 Pulse Ox 92 05/03/21 07:15 05/02/21 05/03/21 05/03/21 22:59 06:59 14:59 Intake Total 313.875 / 953.042 100 / 1053.042 360 / 360 Output Total 200 / 200 950 / 1150 Balance 113.875 / 753.042 -850 / -96.958 360 / 360 Weight last 48 hrs Weight 270 lb Physical Exam Narrative: EXAM NARRATIVE: GENERAL: Patient is alert, awake and oriented x3. NECK: No jugular vein distension. HEENT: No cyanosis. No icterus. No pallor. HEART: Regular S1 and S2. No murmur, rub or gallop. LUNGS: Clear to auscultate bilaterally. ABDOMEN: Soft, nontender and nondistended. Positive bowel sounds. No guarding, rebound or tenderness. CENTRAL NERVOUS SYSTEM: Grossly nonfocal. EXTREMITIES: Lower extremities without edema bilaterally. Data : 05/03/21 04:05 05/03/21 04:05 A&P Assessment and plan (1) NSTEMI (non-ST elevated myocardial infarction): Status post 2 drug-eluting stent to LCx to OM1. Patient is ready to be discharged on aspirin 81mg daily, brilinta 90mg BID, atorvastatin and betablockers. Outpatient follow up with cardiology Status: Acute (2) Benign essential HTN: Titrate medicine. Continue current medications Status: Acute (3) Smoker: Advised quitting smoking Status: Acute Attestations Medical Necessity Statement*: Care expected to cross 2 midnights. 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
[2021-05-03] MEDS: ticagrelor 90 mg Tablet PO (09:51)
[2021-05-03] MEDS: fixodent 39 gm Tube 1 APPLIC DENTAL (09:51)
--- NOTE | 2021-05-03 10:04 | P.DS_ITS ---
Discharge Providers Date of Admission: 05/01/21 19:27 Date of Discharge: May 03, 2021 Attending Provider at Admission: Meaghan Hilario Attending Provider at Discharge: Obie Phelps MD Primary Care Provider: Jacqueline Cheema NP Diagnoses at Discharge Discharge Diagnosis (1) NSTEMI (non-ST elevated myocardial infarction): Status: Acute (2) Benign essential HTN: Status: Acute (3) Smoker: Status: Acute Reason for Visit Reason for Visit: CHEST PAIN Hospital Course Hospital Course Patient was admitted for chest pain. He had a positive troponin and taken to the [facility]. 2 stents were placed. He tolerated the procedure well. Post op course was uncomplicated. Diagnostic Cath Status: Elective Diagnostic Findings * Left Main has no disease. * Left Anterior Descending has no disease. * Circumflex has no disease. * Mid Right Coronary Artery: moderate 50% stenosis, AJAY: 3 flow. * First Obtuse Marginal Branch Segment: total occlusion, AJAY: 0 flow. * First Obtuse Marginal Branch Segment: obstructive 70% stenosis, AJAY: 0 flow. * Coronary angiography shows right dominance. Interventional Findings * First Obtuse Marginal Branch Segment: 100% stenosis treated with a AB MINI TREK 2.00X12 RX BALLOON, and MDT R DEAN 2.75X15 AALIYAH. 0% residual stenosis, AJAY: 3 flow. * First Obtuse Marginal Branch Segment: 70% stenosis treated with a Drug Eluting Stent. 0% residual stenosis, AJAY: 3 flow. Conclusions 1. There is moderate coronary artery disease with one vessel disease. 2. First Obtuse Marginal Branch Segment was treated with a Balloon, and Drug Eluting Stent. 3. First Obtuse Marginal Branch Segment was treated with a Drug Eluting Stent. Discharge Data Data Completed and Pending: Completed Studies During Hospitalization Category Date Time Status CONCR[employer]E [employer]M [employer]TER request for service Routin e Exams 05/02/21 06:07 Completed XR chest 1V aby ble [id number] Stat Exams 05/01/21 14:16 Completed CV echo complete* [id number] Routine Ultrasound 05/02/21 12:16 Completed Pending at discharge Category Date Time Status Basic Metabolic P carlos AM LABS Lab 05/04/21 04:00 Ordered Complete Blood Co unt w/Auto AM LABS Lab 05/04/21 04:00 Ordered Labs from last 24 hours 05/03/21 05/03/21 05/03/21 06:19 04:05 04:05 WBC 9.0 RBC 5.43 H Hgb 16.1 Hct 51.3 MCV 94.5 H D MCH 29.7 MCHC 31.4 RDW 14.0 Plt Count 170 MPV 9.4 Neut % (Auto) 55.7 Lymph % (Auto) 29.7 [place] % (Auto) 11.3 Eos % (Auto) 2.4 Baso % (Auto) 0.6 Neut # (Auto) 5.03 Lymph # (Auto) 2.7 [place] # (Auto) 1.0 H Eos # (Auto) 0.2 Baso # (Auto) 0.1 Nucleated RBC % (a uto) 0 Nucleated RBCs # 0.0 Sodium 136 Potassium 4.2 Chloride 104 Carbon Dioxide 19 L Anion Gap 17.2 BUN 12 Creatinine 0.7 GFR Calculation 120.9 Glucose 105 POC Glucose 109 Calculated Osmolal ity 282 L Calcium 9.0 05/02/21 05/02/21 05/02/21 19:50 16:32 11:29 WBC RBC Hgb Hct MCV MCH MCHC RDW Plt Count MPV Neut % (Auto) Lymph % (Auto) [place] % (Auto) Eos % (Auto) Baso % (Auto) Neut # (Auto) Lymph # (Auto) [place] # (Auto) Eos # (Auto) Baso # (Auto) Nucleated RBC % (a uto) Nucleated RBCs # Sodium Potassium Chloride Carbon Dioxide Anion Gap BUN Creatinine GFR Calculation Glucose POC Glucose 125 H 126 H 195 H Calculated Osmolal ity Calcium Vitals: Last Vital Signs Temp 98.0 F 05/03/21 07:15 Pulse 97 05/03/21 07:15 Resp 18 05/03/21 07:15 BP 131/79 05/03/21 07:15 Pulse Ox 92 05/03/21 07:15 Discharge Plan Discharge Patient Disposition: Home Condition: Stable Prescriptions: New atorvastatin 40 mg Tablet 80 mg PO BEDTIME Qty: 90 RF: 2 metoprolol succinate 25 mg Tablet Extended Release 24 Hr 12.5 mg PO DAILY Qty: 120 RF: 3 Brilinta 90 mg Tablet 90 mg PO BID Qty: 120 RF: 3 aspirin [Adult Low Dose Aspirin] 81 mg tablet,delayed release (DR/EC) 81 mg PO DAILY Qty: 90 RF: 3 Continued irbesartan 150 mg tablet 150 mg PO BEDTIME RF: 0 insulin lispro 100 unit/mL insulin pen 5 unit SUBCUT TID Qty: 15 RF: 3 (DME) pen needle, diabetic [BD Ultra-Fine Mini Pen Needle] 31 gauge x 3/16 needle See Rx Instructions .ROUTE .MEDSUPPLY Qty: 360 RF: 3 Vitamin D3 25 mcg (1,000 unit) Capsule 25 mcg PO BEDTIME RF: 0 Chantix Continuing Month Box 1 mg tablet 1 mg PO BID RF: 0 Lantus Solostar U-100 Insulin 100 unit/mL (3 mL) insulin pen 48 unit SUBCUT BEDTIME RF: 0 Roshan Mag Zinc Plus D3 333 mg-133 unit -133 mg-5 mg Tablet 1 tab PO BEDTIME RF: 0 Adult Multivitamin Gummies 200 mcg Tablet,Chewable 1 tab PO BEDTIME RF: 0 Vitamin C 1 tab PO BEDTIME RF: 0 Discontinued atorvastatin 20 mg tablet 20 mg PO BEDTIME RF: 0 aspirin 325 mg Tablet 650 mg PO PRN RF: 0 Discharge Orders: Discharge Order (Routine); Ordered 05/03/21 Ordered By: Obie Phelps Referrals: Jacqueline Cheema NP [Primary Care Provider] - Jerson Moreno MD [Physician] - 1 month Yaquelin Graves FNP [Nurse Practitioner] - 7-10 days Discharge Diet: Cardiac Discharge Activity: Increase activity as tolerated Patient Instructions: Metoprolol (By mouth), Ticagrelor (By mouth), Left Heart Catheterization (DC), How to Stop Smoking (DC), Coronary Intravascular Stent Placement (DC), Opioid Safety, Post Angiogram Home Care Instructions Activity Restrictions/Additional Instructions: Please do not lift more than 5 pounds of weight for the next 5 days Discharge Attestations Time Spent in Discharge Care*: less than 30 min Quality Metrics Clinical Quality Measures During this hospital stay, did patient experience: AMI Clinical Trial Participant: No Contraindication to aspirin (AMI): Aspirin given Contraindication to statin: Statin prescribed Coding Level of Care Code Acute Chg FW DC note Diagnoses NSTEMI (non-ST elevated myocardial infarction) I21.4 Benign essential HTN I10 Smoker F17.200
--- NOTE | 2021-05-03 10:11 | PC.NURSE ---
gaurang hutson/Pt chooses his pharmacy in [facility] Pt provided with gaurang hutson. Deisy
--- NOTE | 2021-05-03 10:55 | PC.NURSE ---
talked to pharmacy verified new Rx at [facility] if they are electronically transmitted. Pharmacist verified and also called in his atorvastatin 80 mg orally 1 tablet for quantity of 30 and 2 refills as prescribed so pt insurance can accept it.
--- NOTE | 2021-05-03 10:59 | PC.NURSE ---
Discharge to home with son Discussed to pt to follow-up his appointments. Instructed and educated pt on his new meds actions, dosing, timing and possible side effects. Post angiogram home care instructions provided to pt. Discharge packet provided to pt.
--- NOTE | 2021-05-04 15:18 | PC.RESP ---
Smoking Cessation information sent to patient.
== END 2021-05-03 11:09 | disposition home or self-care (01) | DRG 247 ==
LOC: ER 16:39 → CSU 05-02 05:16
PROVIDERS: Internal Medicine Cardiovascular Disease; Admitting Provider Hospitalist; Emergency Provider Family Medicine; PCP Nurse Practitioner Family; Visit Provider Family Medicine
PROC: 027035Z Dilation of Coronary Artery, One Artery with Two Drug-eluting Intraluminal Devices, Percutaneous Approach (ICD-10-PCS; principal; 2021-05-02 07:00)
PROC: 027035Z Dilation of Coronary Artery, One Artery with Two Drug-eluting Intraluminal Devices, Percutaneous Approach (ICD-10-PCS; 2021-05-02 07:00)
DX: I21.4 Non-ST elevation (NSTEMI) myocardial infarction (principal); I25.10 Atherosclerotic heart disease of native coronary artery without angina pectoris; F17.210 Nicotine dependence, cigarettes, uncomplicated; J44.9 Chronic obstructive pulmonary disease, unspecified; G47.33 Obstructive sleep apnea (adult) (pediatric); I10 Essential (primary) hypertension; E78.5 Hyperlipidemia, unspecified; E11.9 Type 2 diabetes mellitus without complications; Z79.4 Long term (current) use of insulin; E66.9 Obesity, unspecified; Z68.36 Body mass index [BMI] 36.0-36.9, adult
CPT/HCPCS: 12345; 36415; 36416; 71045; 80048; 80053; 80061; 82962; 83036; 84484; 85025; 85347; 93005; 93306; 93454; 94660; 96372; 99285; C1725; C1769; C1874; C1887; C1894; C9600; J1644; J1650; J1815 ×2; J2250; J2270; J3010; J3490; J7030; Q0163; Q9967

== ENCOUNTER → 2021-05-12 16:45 | Outpatient (BNVA) | payer OTHER, SELFPAY | PROVIDERS: PCP Nurse Practitioner Family; Visit Provider Nurse Practitioner Family | DX: I25.10 Atherosclerotic heart disease of native coronary artery without angina pectoris (principal) | CPT/HCPCS: 80048 ==

== ENCOUNTER → 2021-10-13 08:31 | Outpatient (BNVA) | payer OTHER, SELFPAY | PROVIDERS: PCP Nurse Practitioner Family; Visit Provider Internal Medicine | DX: E11.9 Type 2 diabetes mellitus without complications (principal); E66.9 Obesity, unspecified; E78.5 Hyperlipidemia, unspecified; I25.119 Atherosclerotic heart disease of native coronary artery with unspecified angina pectoris; I10 Essential (primary) hypertension; F17.200 Nicotine dependence, unspecified, uncomplicated; Z68.38 Body mass index [BMI] 38.0-38.9, adult; Z79.4 Long term (current) use of insulin | CPT/HCPCS: 99214 ==

== ENCOUNTER → 2022-03-10 09:49 | Outpatient (BNVA) | payer OTHER, SELFPAY | PROVIDERS: PCP Nurse Practitioner Family; Visit Provider Internal Medicine | DX: E11.9 Type 2 diabetes mellitus without complications (principal); E78.2 Mixed hyperlipidemia; Z79.4 Long term (current) use of insulin; Z68.36 Body mass index [BMI] 36.0-36.9, adult | CPT/HCPCS: 80053; 80061; 83036 ==

== ENCOUNTER → 2022-12-14 08:42 | Outpatient (BNVA) | payer OTHER, SELFPAY | PROVIDERS: PCP Nurse Practitioner Family; Visit Provider Internal Medicine | DX: E78.2 Mixed hyperlipidemia (principal); E11.9 Type 2 diabetes mellitus without complications | CPT/HCPCS: 36415; 80053; 80061; 82044; 83036 ==

== ENCOUNTER 2023-08-25 10:02 | Outpatient (CLI) | payer OTHER, SELFPAY ==
[2023-08-25 10:55] LABS: Estmated Average Glucose 154
[2023-08-25 11:05] LABS: Alanine Aminotransferase 31 U/L (0-41); Albumin Level 4.4 g/dL (3.5-5.2); Alkaline Phosphatase 113 U/L (40-130); Anion Gap 14.4 (5-19); Aspartate Amino Transferase 19 U/L (0-40); Blood Urea Nitrogen 14 mg/dL (6-20); Calcium 9.6 mg/dL (8.5-10.5); Carbon Dioxide 25 mmol/L (22-29); Chloride 102 mmol/L (98-107); Chol HDL Ratio 2.77 mg/dL (1.0-5.00); Cholesterol 86 mg/dL (0-200); Globulin 2.7 g/dL (1.3-4.6); Glomerular Filtration Rate 89.3 mL/min (90-130); Glucose 145 mg/dL (65-115); HDL Cholesterol 31 mg/dL (60-100); LDL Cholesterol Calculated 42 mg/dL (50-129); LDL HDL Ratio 1.35 RATIO (0.00-3.22); Osmolality Calculated 287 mOsm/kg (285-295); Potassium 4.4 mmol/L (3.5-5.1); Sodium 137 mmol/L (136-145); Total Bilirubin 0.7 mg/dL (0.15-1.2); Total Protein 7.1 g/dL (6.6-8.7); Triglycerides 66 mg/dL (0-150)
[2023-08-25 11:06] LABS: Creatinine Urine, Random 120 mg/dL (39-259); Microalbum Creatinine Ratio Ur 8 mg/dL (0-20); Microalbumin Random Urine 1 ug/dL (0-20)
== END 2023-08-25 10:03 | disposition home or self-care (01) ==
LOC: LAB 10:04
PROVIDERS: PCP Nurse Practitioner Family; Visit Provider Internal Medicine
DX: E11.9 Type 2 diabetes mellitus without complications (principal)
CPT/HCPCS: 36415; 80053; 80061; 82044; 83036

== ENCOUNTER 2024-02-13 09:27 | Outpatient (CLI) | payer OTHER, SELFPAY ==
[2024-02-13 10:37] LABS: Alanine Aminotransferase 48 U/L (0-41); Albumin Level 4.3 g/dL (3.5-5.2); Alkaline Phosphatase 127 U/L (40-130); Anion Gap 14.4 (5-19); Aspartate Amino Transferase 29 U/L (0-40); Blood Urea Nitrogen 15 mg/dL (6-20); Calcium 9.8 mg/dL (8.5-10.5); Carbon Dioxide 24 mmol/L (22-29); Chloride 101 mmol/L (98-107); Globulin 2.3 g/dL (1.3-4.6); Glomerular Filtration Rate 102.3 mL/min (90-130); Glucose 179 mg/dL (65-115); Osmolality Calculated 285 mOsm/kg (285-295); Potassium 4.4 mmol/L (3.5-5.1); Sodium 135 mmol/L (136-145); Total Bilirubin 0.5 mg/dL (0.15-1.2); Total Protein 6.6 g/dL (6.6-8.7)
[2024-02-13 10:44] LABS: Creatinine Urine, Random 105 mg/dL (39-259); Microalbum Creatinine Ratio Ur 10 mg/dL (0-20); Microalbumin Random Urine 1 ug/dL (0-20)
[2024-02-13 15:46] LABS: Estmated Average Glucose 183
== END 2024-02-13 09:28 | disposition home or self-care (01) ==
LOC: LAB 09:27
PROVIDERS: PCP Nurse Practitioner Family; Visit Provider Internal Medicine
DX: E78.2 Mixed hyperlipidemia (principal); E16.0 Drug-induced hypoglycemia without coma; T38.3X5A Adverse effect of insulin and oral hypoglycemic [antidiabetic] drugs, initial encounter; E11.9 Type 2 diabetes mellitus without complications
CPT/HCPCS: 36415; 80053; 82044; 83036

== ENCOUNTER 2024-06-01 09:50 | Outpatient (CLI) | payer OTHER, SELFPAY ==
[2024-06-01 10:35] LABS: Estmated Average Glucose 258; Hemoglobin A1C 10.6 % (4.0-6.0)
[2024-06-01 10:56] LABS: Alanine Aminotransferase 37 U/L (0-41); Albumin Level 4.4 g/dL (3.5-5.2); Alkaline Phosphatase 153 U/L (40-130); Anion Gap 16.3 (5-19); Aspartate Amino Transferase 19 U/L (0-40); Blood Urea Nitrogen 17 mg/dL (6-20); Calcium 9.4 mg/dL (8.5-10.5); Carbon Dioxide 22 mmol/L (22-29); Chloride 99 mmol/L (98-107); Chol HDL Ratio 4.03 mg/dL (1.0-5.00); Cholesterol 121 mg/dL (0-200); Glomerular Filtration Rate 89.3 mL/min (90-130); Glucose 335 mg/dL (65-115); HDL Cholesterol 30 mg/dL (60-100); LDL Cholesterol Calculated 59 mg/dL (50-129); LDL HDL Ratio 1.97 RATIO (0.00-3.22); Osmolality Calculated 291 mOsm/kg (285-295); Potassium 4.3 mmol/L (3.5-5.1); Sodium 133 mmol/L (136-145); Total Bilirubin 0.8 mg/dL (0.15-1.2); Total Protein 7.4 g/dL (6.6-8.7); Triglycerides 162 mg/dL (0-150)
[2024-06-01 11:13] LABS: Creatinine Urine, Random 116 mg/dL (39-259); Microalbum Creatinine Ratio Ur 9 mg/dL (0-20); Microalbumin Random Urine 1 ug/dL (0-20)
== END 2024-06-01 09:51 | disposition home or self-care (01) ==
LOC: LAB 09:51
PROVIDERS: PCP Nurse Practitioner Family; Visit Provider Internal Medicine
DX: E78.2 Mixed hyperlipidemia (principal); E11.9 Type 2 diabetes mellitus without complications
CPT/HCPCS: 36415; 80053; 80061; 82044; 83036

== ENCOUNTER 2024-09-03 08:12 | Outpatient (CLI) | payer OTHER, SELFPAY ==
[2024-09-03 09:04] LABS: Alanine Aminotransferase 22 U/L (0-41); Albumin Level 4.2 g/dL (3.5-5.2); Alkaline Phosphatase 128 U/L (40-130); Anion Gap 13.6 (5-19); Aspartate Amino Transferase 13 U/L (0-40); Blood Urea Nitrogen 15 mg/dL (6-20); Calcium 8.8 mg/dL (8.5-10.5); Carbon Dioxide 25 mmol/L (22-29); Chloride 103 mmol/L (98-107); Chol HDL Ratio 3.19 mg/dL (1.0-5.00); Cholesterol 99 mg/dL (0-200); Glomerular Filtration Rate 101.9 mL/min (90-130); Glucose 231 mg/dL (65-115); HDL Cholesterol 31 mg/dL (60-100); LDL Cholesterol Calculated 52 mg/dL (50-129); LDL HDL Ratio 1.68 RATIO (0.00-3.22); Osmolality Calculated 292 mOsm/kg (285-295); Potassium 4.6 mmol/L (3.5-5.1); Sodium 137 mmol/L (136-145); Total Protein 7.2 g/dL (6.6-8.7); Triglycerides 80 mg/dL (0-150)
[2024-09-03 09:14] LABS: Estmated Average Glucose 220; Hemoglobin A1C 9.3 % (4.0-6.0)
[2024-09-03 09:18] LABS: Creatinine Urine, Random 138 mg/dL (39-259); Microalbum Creatinine Ratio Ur 14 mg/dL (0-20); Microalbumin Random Urine 2 ug/dL (0-20)
[2024-09-04 08:04] LABS: C-Peptide 2.06 ng/mL (0.80-3.85)
== END 2024-09-03 08:13 | disposition home or self-care (01) ==
LOC: LAB 08:13
PROVIDERS: PCP Nurse Practitioner Family; Visit Provider Internal Medicine
DX: I25.119 Atherosclerotic heart disease of native coronary artery with unspecified angina pectoris (principal); E78.2 Mixed hyperlipidemia; E11.9 Type 2 diabetes mellitus without complications
CPT/HCPCS: 36415; 80053; 80061; 82044; 83036; 84681; 86337; 86341

== ENCOUNTER 2024-11-16 09:14 | Outpatient (CLI) | payer OTHER, SELFPAY ==
[2024-11-16 09:58] LABS: Estmated Average Glucose 229; Hemoglobin A1C 9.6 % (4.0-6.0)
[2024-11-16 10:02] LABS: Alanine Aminotransferase 25 U/L (0-41); Albumin Level 4.1 g/dL (3.5-5.2); Alkaline Phosphatase 144 U/L (40-130); Anion Gap 19.3 (5-19); Aspartate Amino Transferase 18 U/L (0-40); Blood Urea Nitrogen 11 mg/dL (6-20); Calcium 9.6 mg/dL (8.5-10.5); Carbon Dioxide 21 mmol/L (22-29); Chloride 102 mmol/L (98-107); Chol HDL Ratio 3.19 mg/dL (1.0-5.00); Cholesterol 102 mg/dL (0-200); Globulin 3.1 g/dL (1.3-4.6); Glucose 202 mg/dL (65-115); HDL Cholesterol 32 mg/dL (60-100); LDL Cholesterol Calculated 44 mg/dL (50-129); LDL HDL Ratio 1.38 RATIO (0.00-3.22); Osmolality Calculated 291 mOsm/kg (285-295); Potassium 4.3 mmol/L (3.5-5.1); Sodium 138 mmol/L (136-145); Total Bilirubin 0.6 mg/dL (0.15-1.2); Total Protein 7.2 g/dL (6.6-8.7); Triglycerides 130 mg/dL (0-150)
[2024-11-16 10:11] LABS: Creatinine Urine, Random 74 mg/dL (39-259); Microalbum Creatinine Ratio Ur 41 mg/dL (0-20); Microalbumin Random Urine 3 ug/dL (0-20)
== END 2024-11-16 09:15 | disposition home or self-care (01) ==
LOC: LAB 09:19
PROVIDERS: PCP Nurse Practitioner Family; Visit Provider Internal Medicine
DX: E78.2 Mixed hyperlipidemia (principal); E11.9 Type 2 diabetes mellitus without complications
CPT/HCPCS: 80053; 80061; 82044; 83036

== ENCOUNTER 2025-04-16 08:13 | Outpatient (CLI) | payer BC, SELFPAY ==
--- NOTE | 2025-04-16 08:30 | US_ITS ---
WS: [id number] RIGHT LOWER EXTREMITY SOFT TISSUE ULTRASOUND CLINICAL INFORMATION: palpable mass of right posterior medial thigh COMPARISON: Extremity FINDINGS: Ultrasound performed in the area of concern. In the area of concern, there is superficial thrombosed varicosities in the greater saphenous vein extending from the mid thigh to the knee. Findings compatible with superficial thrombophlebitis. Recommend dedicated RIGHT or bilateral lower extremity venous ultrasound to assess for additional thrombus if indicated. US/US soft tissue/extremity [id number] IMPRESSION: Thrombosed varicosities in the medial RIGHT thigh in the area of concern involv ing the greater saphenous vein extending to the knee. Note this was a soft tiss ue ultrasound not a dedicated venous ultrasound. Recommend complete follow-up R IGHT lower extremity venous ultrasound to assess for additional thrombus if ind icated Referring provider was notified at the time of study by director of assessing
== END 2025-04-16 08:14 | disposition home or self-care (01) ==
LOC: RAD 08:15
PROVIDERS: PCP Nurse Practitioner Family; Visit Provider Nurse Practitioner
DX: I83.891 Varicose veins of right lower extremity with other complications (principal)
CPT/HCPCS: 76882

== ENCOUNTER 2025-04-23 15:29 | Outpatient (CLI) | payer BC, SELFPAY ==
--- NOTE | 2025-04-23 15:45 | USCV_ITS ---
LangdonJs romero Age: 49 Gender: M : 1975 Exam Date: 04/23/2025 15:41 Ordering Phys: Anne Marie Zhu APN Technologist: ARUNA Exam Location: [facility] [place]_ Indication: superficial thrombus visualized on soft tissue ultrasound last week-evaluation of deep and superficial system today HISTORY: Superficial thrombus visualized on prior soft tissue ultrasound PROCEDURES: Venous duplex imaging was performed in only the right lower extremity. The following venous structures were evaluated: common femoral vein, profunda vein, proximal portion of the greater saphenous vein, superficial femoral vein, and the popliteal vein. In addition, the posterior tibial and peroneal trunk were evaluated. FINDINGS: No evidence of DVT. Extensive, occlusive superficial thrombophlebitis visualized distal to GSV FV junction within the GSV and extends just below the left knee CONCLUSIONS No DVT. Extensiv occlusive superficial thrombophlebitis Greater saphenous vein. Report called by airplane dispatcher at time of exam. Dr. Emerita Garcia DO (Electronically Signed) Final Date: 23 Apr 2025 16:11 S
== END 2025-04-23 15:30 | disposition home or self-care (01) ==
PROVIDERS: PCP Family Medicine; Visit Provider Nurse Practitioner
DX: I80.01 Phlebitis and thrombophlebitis of superficial vessels of right lower extremity (principal)
CPT/HCPCS: 93971

== ENCOUNTER → 2025-04-24 09:17 | Outpatient (BNVA) | payer BC, SELFPAY | DX: I10 Essential (primary) hypertension (principal); E11.9 Type 2 diabetes mellitus without complications | CPT/HCPCS: 80053; 80061; 83036; 85025 ==

== ENCOUNTER 2025-05-01 08:18 | Oncology outpatient (recurring) (ONCR) | payer BC, SELFPAY ==
--- NOTE | 2025-05-01 09:04 | XR_ITS ---
WS: [id number] XR chest 2V* [id number] REASON FOR EXAM: polycythemia FINDINGS: Normal heart, thoracic aorta, Calcified granulomatous disease in both hemithoraces. No acute pulmonary parenchymal or pleural abnormality is identified. No lung nodule, lung mass, or adenopathy is identified. Minimal degenerative spondylosis in the thoracic spine. And mediastinum. XR/XR chest 2V* [id number] IMPRESSION: No significant abnormality of the chest.
[2025-05-01 09:15] LABS: Basophils # 0.1 10^3/uL (0.0-0.1); Basophils % 0.9 %; Eosinophils # 0.1 10^3/uL (0.0-0.8); Eosinophils % 1.6 %; Hematocrit 51.6 % (37-53); Lymphocytes # 1.6 10^3/uL (0.8-4.8); Lymphocytes % 22.4 %; Mean Corpuscular HGB Conc 34.1 g/dL (30-55); Mean Corpuscular Hemoglobin 29.6 pg (27-33); Mean Corpuscular Volume 86.9 fl (82-101); Mean Platelet Volume 9.4 fL (7.4-10.4); Monocytes # 0.7 10^3/uL (0.2-0.9); Monocytes % 10.3 %; Neutrophils # 4.48 10^3/uL (1.8-7.7); Neutrophils % 64.2 %; Nucleated Red Blood Cells % 0 %; Platelet Count 228 10^3/cmm (157-399); Red Blood Count 5.94 10^6/uL (3.85-5.65); Red Cell Distribution Width 13.8 % (12.1-15.1); White Blood Count 6.97 10^3/uL (3.29-11.43)
[2025-05-01 09:42] LABS: Alanine Aminotransferase 23 U/L (0-41); Albumin Level 4.5 g/dL (3.5-5.2); Alkaline Phosphatase 150 U/L (40-130); Aspartate Amino Transferase 19 U/L (0-40); Blood Urea Nitrogen 31 mg/dL (6-20); C Reactive Protein 6.6 mg/L (0.0-4.9); Calcium 10.5 mg/dL (8.5-10.5); Carbon Dioxide 17 mmol/L (22-29); Chloride 100 mmol/L (98-107); Globulin 3.8 g/dL (1.3-4.6); Glomerular Filtration Rate 78.8 mL/min (90-130); Glucose 301 mg/dL (65-115); Immunoglobulin IGA 348 mg/dL (70-400); Immunoglobulin IGG 1218 mg/dL (700-1600); Immunoglobulin IGM 61 mg/dL (40-230); Osmolality Calculated 290 mOsm/kg (285-295); Sodium 131 mmol/L (136-145); Total Bilirubin 0.6 mg/dL (0.15-1.2); Total Protein 8.3 g/dL (6.6-8.7)
[2025-05-01 09:45] LABS: Anion Gap 18.6 (5-19); Lactate Dehydrogenase 188 U/L (135-225); Potassium 4.6 mmol/L (3.5-5.1)
[2025-05-01 09:57] LABS: Ferritin 390 ng/mL (30-400); Iron 84 ug/dL (59-158); Total Iron Binding Capacity 365 mcg/dl; Unsaturated Iron Binding 281 ug/dL (112-347)
[2025-05-03 15:43] LABS: Anti-Nuclear Antibody Screen NEGATIVE (NEGATIVE)
[2025-05-04 13:44] LABS: ALBUMIN 4.7 g/dL (3.8-4.8); ALPHA 1 GLOBULIN 0.3 g/dL (0.2-0.3); ALPHA 2 GLOBULIN 0.9 g/dL (0.5-0.9); BETA 1 GLOBULIN 0.5 g/dL (0.4-0.6); BETA 2 GLOBULIN 0.5 g/dL (0.2-0.5); GAMMA GLOBULIN 1.2 g/dL (0.8-1.7)
[2025-05-05 16:15] LABS: Immunofixation Serum Normal pattern.
[2025-05-13 15:25] LABS: Erythropoietin 3.8 mIU/mL (2.6-18.5)
== END 2025-05-27 23:59 | disposition home or self-care (01) ==
PROVIDERS: Visit Provider Internal Medicine
DX: I80.00 Phlebitis and thrombophlebitis of superficial vessels of unspecified lower extremity (principal); D75.1 Secondary polycythemia; J84.10 Pulmonary fibrosis, unspecified
CPT/HCPCS: 36415; 71046; 80053; 82668; 82728; 82784; 83540; 83550; 83615; 84155; 84165; 85025; 86038; 86140; 86334

== ENCOUNTER 2025-06-13 11:41 | Oncology outpatient (recurring) (ONCR) | payer BC, SELFPAY ==
--- NOTE | 2025-05-29 07:15 | US_ITS ---
WS: [id number] Complete ABDOMINAL ULTRASOUND HISTORY: polycythemia COMPARISON: None available. Liver: 17.7 cm in length. Liver is top normal size with coarse echotexture from hepatic steatosis. No mass identified. Portal Vein: Normal hepatopetal flow with monophasic waveform. Gallbladder: Normally distended gallbladder with no stones or wall thickening. CBD: 0.5 cm Pancreas: Normal size and echogenicity. Right kidney: 11.3 cm x 6.3 x 6.0 cm. Cortex:1.0 cm. Normal size kidney with no obstruction. Multiple renal cysts are identified. Largest cyst measures 2.1 x 3.0 x 2.5 cm from the mid kidney. No solid mass. Left kidney: 12.6 cm x 5.4 cm x 5.5 cm. Cortex: 1.1 cm. Normal size kidney with no obstruction. Multiple cysts. The largest measures 6.4 x 5.0 x 4.8 cm in the lower pole. Spleen: 11.9 cm. Normal size and echogenicity. Aorta and IVC: Limited. US/US abdomen complete* [id number] Impression: 1. Normal gallbladder. 2. No renal obstruction. 3. Bilateral renal cysts. 4. Top normal size liver with hepatic steatosis. 5. Normal spleen.
[2025-06-11 16:19] LABS: CALR Exon 9 Mutation NOT DETECTED (NOT DETECTED); JAK2 Exon 12 Mutation NOT DETECTED (NOT DETECTED); JAK2 V617 Clinical Indication polycythemia; MPL Exon 10 Mutation NOT DETECTED (NOT DETECTED); Specimen Source blood
== END 2025-06-27 23:59 | disposition home or self-care (01) ==
PROVIDERS: Visit Provider Internal Medicine
DX: Z53.9 Procedure and treatment not carried out, unspecified reason (principal)
CPT/HCPCS: 36415; 76700; 81219; 81270; 81279; 81339

== ENCOUNTER 2025-08-12 08:18 | Outpatient (CLI) | payer BC, SELFPAY ==
[2025-08-12 09:30] LABS: Alanine Aminotransferase 20 U/L (0-41); Albumin Level 4.4 g/dL (3.5-5.2); Alkaline Phosphatase 126 U/L (40-130); Anion Gap 16.1 (5-19); Aspartate Amino Transferase 16 U/L (0-40); Blood Urea Nitrogen 19 mg/dL (6-20); Calcium 10.0 mg/dL (8.5-10.5); Carbon Dioxide 22 mmol/L (22-29); Chloride 103 mmol/L (98-107); Cholesterol 111 mg/dL (0-200); Globulin 3.2 g/dL (1.3-4.6); Glucose 176 mg/dL (65-115); HDL Cholesterol 36 mg/dL (60-100); Osmolality Calculated 291 mOsm/kg (285-295); Potassium 4.1 mmol/L (3.5-5.1); Sodium 137 mmol/L (136-145); Total Protein 7.6 g/dL (6.6-8.7); Triglycerides 79 mg/dL (0-150)
[2025-08-12 09:32] LABS: Creatinine Urine, Random 195 mg/dL (39-259); Microalbum Creatinine Ratio Ur 15 mg/dL (0-20)
== END 2025-08-12 08:19 | disposition home or self-care (01) ==
PROVIDERS: Visit Provider Internal Medicine
DX: E10.9 Type 1 diabetes mellitus without complications (principal); E78.2 Mixed hyperlipidemia; I25.119 Atherosclerotic heart disease of native coronary artery with unspecified angina pectoris
CPT/HCPCS: 80053; 80061; 82044; 83036

== ENCOUNTER 2025-10-22 19:51 | Oncology outpatient (recurring) (ONCR) | payer BC, SELFPAY | END 2025-10-27 23:59 | disposition home or self-care (01) | LOC: ONCMED 19:52 | PROVIDERS: Referring Provider Pediatrics; Visit Provider Internal Medicine Pulmonary Disease | DX: G47.33 Obstructive sleep apnea (adult) (pediatric) (principal) | CPT/HCPCS: 95811 ==